=== PATIENT | female | born 1950 | race Caucasian/White ===

== ENCOUNTER → 2023-08-12 10:43 | Outpatient (REF) | payer MEDICARE, OTHER, SELFPAY | LOC: WDC 10:43 | PROVIDERS: ATTENDING PHYSICIAN Obstetrics & Gynecology Gynecology; FAMILY PHYSICIAN Family Medicine | DX: Z12.31 Encounter for screening mammogram for malignant neoplasm of breast (principal) | CPT/HCPCS: 77063; 77067 ==

== ENCOUNTER 2023-11-28 23:10 | Inpatient (IN) | payer MEDICARE, OTHER, SELFPAY ==
[2023-11-28] VITALS (8 sets, daily range): BP systolic 77–146; BP diastolic 50–75
[2023-11-28 18:47] LABS: % Basophils 0.4 % (0-2); % Eosinophils 1.3 % (0-6); % Immature Granulocytes 0.3 % (0-0.5); % Lymphocytes 12.9 % (20.5-51.1); % Monocytes 6.8 % (1.7-9.3); % Neutrophils 78.3 % (42.2-75.2); Absolute Eosinophils 0.1 10^3/uL (0-0.7); Absolute Lymphocytes 1.3 10^3/uL (1.2-3.4); Absolute Monocytes 0.7 10^3/uL (0.1-0.6); Absolute Neutrophils 7.6 10^3/uL (1.4-6.5); Hematocrit 39.5 % (37.0-47.0); Hemoglobin 14.3 g/dL (12.0-16.0); Mean Corp Hgb Conc. 36.2 g/dL (33.0-37.0); Mean Corpuscular Hgb 32.7 pg (27.0-31.0); Mean Corpuscular Volume 90.4 fL (81.0-99.0); Mean Platelet Volume 9.9 fL (7.4-10.4); Nucleated Red Blood Cells % 0 %; Platelet Count 144 10^3/uL (130-400); Red Blood Cell Count 4.37 10^6/uL (4.20-5.40); Red Cell Dist. Width 13.2 % (11.5-14.5); White Blood Cell Count 9.7 10^3/uL (4.8-10.8)
[2023-11-28 19:11] LABS: ALT (SGPT) 21 U/L (0-35); AST (SGOT) 42 U/L (14-36); Albumin 4.1 g/dl (3.5-5.0); Alkaline Phosphatase 105 U/L (38-126); Blood Urea Nitrogen 28 mg/dl (7-17); Calcium 10.4 mg/dl (8.4-10.2); Carbon Dioxide 21 mmol/L (22-30); Chloride 98 mmol/L (98-107); Glucose 109 mg/dl (70-99); Potassium 4.6 mmol/L (3.5-5.1); Sodium 128 mmol/L (135-145); Total Bilirubin 1.4 mg/dl (0.2-1.3); Total Protein 6.7 g/dl (6.3-8.2); eGFR > 60.00
--- NOTE | 2023-11-28 20:19 | ED.GENMED ---
History of Present Illness
General
Chief Complaint: Abdominal Symptoms
Source: patient and spouse
Exam Limitations: none
Time Seen by Provider: 11/28/23 19:53
Nursing documentation reviewed up to this point in time: agreed with
History of Present Illness
History of Present Illness:
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
cardiac cath right groin access a week ago for mitral clip that apparently was unsuccessful had some swelling in the groin postoperatively with minimal pain earlier today developed worsening pain with nausea swelling into the labia worse with
movement she spoke with her physicians who referred her to the closest ER to be seen
Past History
Past History
ED Past Medical History: COPD, Valvular disease and Other (Webb valvular disease)
ED Past Surgical History: Cardiac and Cholecystectomy
Social History
Tobacco: Non-smoker
Alcohol: None
Drug: None
Personal:
Living: with family
Employment: Retired
Review of Systems
Review of Systems
All Other Systems: Not applicable
Constitutional: Denies fever or fatigue
EENT: Reports no symptoms
Respiratory: Reports no symptoms
Cardiac: Reports no symptoms
ABD/GI: Reports abdominal pain, nausea and vomiting
Musculoskeletal: Reports back pain
Skin: Reports other (swelling groin)
Neurological: Reports no symptoms
Endocrine: Reports no symptoms
Phy Exam
Physical Exam
Physical Exam:
Physical Exam
General: 73 female looks uncomfortable
Neck: No jaundice
Heart: s1/s2 regular rate and rhythm, no murmur. equal radial pulses.
Lungs: no acute respiratory distress. clear bilaterally
Abdomen: Tender mass in the right groin diffuse abdominal tenderness
Neuro: alert and oriented. no focal neurological deficits
Skin: no rash
Psychiatric: well kept. interactive and cooperative
Extremities: no edema.
Course
Orders/Labs/Results
Orders:
Orders
11/28/23 18:40
Complete Blood Count/With Diff Urgent
Comprehensive Metabolic Panel Urgent
11/28/23 20:07
CT Abd/pelvis Angio W/wo Iv Urgent
Comment:
Reason For Exam: swelling pain vomiting after groain access
11/28/23 20:08
HYDROmorphone [Dilaudid] 1 mg IV NOW STA
Ondansetron Injectable [Zofran] 4 mg IV NOW STA
11/28/23 21:00
Type+Screen Urgent
11/28/23 22:07
0.9% Sodium Chloride 1000 ml [Nss] 1,000 ml IV BOLUS
11/28/23 22:22
Iohexol [Omnipaque] See Protocol PO NOW STA
11/28/23 22:55
Admit/Transfer Patient As Directed
Co-Sign Provider:
Level of Care: Inpatient admission
Assign to:: Telemetry
Physician / Group: sonny
Diagnosis: SBO
Reason for Telemetry: Other
Other Reason for Telemetry: hypotension
Date to Stop Telemetry: 11/30/23
Time to Stop Telemetry: 11:00
Reason for Hospitalization: SBO
Expected length of stay greater than two midnights?: Yes
ELOS- Estimated Length of Stay in days: 3
I certify the patient meets the requirements for IP care: Yes
PRN Pain Medication Management As Directed
May give lesser potent ordered pain med per pt: Yes
preference::
Protocol:: Medication orders for pain may be administered in a
manner that supports deferring to patient preference
when the pt is:
- Requesting an ordered lesser potent pain medication.
Least to most potent pain medications are defined
as: acetaminophen < NSAID < tramadol < opioids
(morphine, oxycodone, hydromorphone).
- Requesting a lesser dose of the same medication IF
ORDERED.
- Requesting a less intrusive route of administration
if both routes are prescribed by the provider (PO <
IV).
11/28/23 22:56
Code Status As Directed
Resuscitation Status: Full Code
11/28/23 22:58
EKG [Electrocardiogram (*1)] Stat
Reason for Study: QTc Monitoring
11/29/23 00:30
CT Abd/pel (oral only)-DH Only Urgent
Reason For Exam: sbo-requested by surgery
11/30/23 11:00
DC Protocol for Telemetry ONCE
Abnormal Lab Results
11/28/23
18:40
MCH 32.7 H pg
(27.0-31.0)
Absolute Neuts (auto) 7.6 H 10^3/uL
(1.4-6.5)
Absolute Monos (auto) 0.7 H 10^3/uL
(0.1-0.6)
Neutrophils % 78.3 H %
(42.2-75.2)
Lymphocytes % 12.9 L %
(20.5-51.1)
Sodium 128 L mmol/L
(135-145)
Carbon Dioxide 21 L mmol/L
(22-30)
BUN 28 H mg/dl
(7-17)
Glucose 109 H mg/dl
(70-99)
Calcium 10.4 H mg/dl
(8.4-10.2)
Total Bilirubin 1.4 H mg/dl
(0.2-1.3)
AST 42 H U/L
(14-36)
11/28/23 18:40
11/28/23 18:40
Vital Signs
Initial and Last Documented VS:
Initial Vital Signs
Temp Pulse Resp BP Pulse Ox
99.1 F 69 19 118/75 99
11/28/23 18:02 11/28/23 18:02 11/28/23 18:02 11/28/23 18:02 11/28/23 18:02
Last Documented Vital Signs
Temp Pulse Resp BP Pulse Ox
98.8 F 72 17 77/50 98
11/28/23 18:26 11/28/23 22:45 11/28/23 22:45 11/28/23 22:00 11/28/23 22:45
MDM/Problems Addressed
Differential Diagnosis Includes:
Aneurysm pseudoaneurysm AAA
MDM/Problems Addressed:
Swollen groin
Chronic conditions affecting care:
Liver disease
Acute Exacerbation and/or Progression of Chronic Illness:
Liver disease
*Radiology
Radiology exam reviewed: radiology read reviewed
*Pulse Oximetry
Patient hypoxic: no
*EKG
Interpreted by ED Provider?: Yes
Interpretation: abnormal
Comparison EKG: no comparison EKG present
Heart Rate: 78
Rate: normal
Rhythm: sinus
QRS Pattern: normal QRS
Ischemia: no ischemia
*Signal Operator Interpretation
Rate: normal and tachycardiac
Interpretation: normal
Heart Rate: 78
Rhythm: sinus
*Critical Care Note
Total Time (30-74mins, 75-104mins- exclusive of procedures): 30
Update Note
Update Note:
Update, CT reviewed, reviewed with patient no longer has a bulge in her groin, looks like this was all hernia has a postop vascular issue reviewed general surgery with hospitalist reviewed with patient will get a CT with oral contrast tonight if she
still has signs of obstruction will go to the OR if not will be managed more conservatively patient and spouse are in agreement with plan
ED Attending Note
-
Portions of this chart may have been created with voice recognition software.� Occasional wrong word or��sound alike� substitutions may have occurred due to the inherent limitations of voice recognition software.
Discharge Plan
Departure
Patient Disposition: Admit
Date of Disposition: 11/28/23
Time of Disposition: 23:01
Admit to: Med/Surg
Presentation/result/management discussed w/ accepting MD/DO: Hospitalist
Patient with high blood pressure during this ER visit?: No
Condition: Good
Discharge Problem:
SBO (small bowel obstruction)
Prescriptions:
No Action
levothyroxine 25 mcg tablet
25 mcg PO DAILY
lorazepam 0.5 mg tablet
1 mg PO HS PRN (Reason: sleep)
Patient Comments:
05/14/2023: last filled 04/19/23, 8 tabs for 4 days from [facility][id number]
albuterol sulfate [Ventolin HFA] 90 mcg/actuation HFA aerosol inhaler
2 puff INHALATION R Q4 PRN (Reason: sob/wheezing)
furosemide 20 mg Tablet
20 mg PO DAILY Qty: 30 0RF
spironolactone 50 mg Tablet
50 mg PO DAILY Qty: 30 0RF
Referrals:
UNKNOWN - PT DOES,NOT KNOW [Family Provider] -
Interventions
Interventions:
*Risk Screen - Suicide Last Done: 11/28/23 18:02
*General Assessment Last Done: 11/28/23 18:43
*Neglect/Abuse Screening Last Done: 11/28/23 18:02
*ED COVID-19 Vaccine History Last Done: 11/28/23 18:02
MU-Lzappw-Kkkzdcibhw Assessment Last Done: 11/28/23 18:28
Discharge Date and Time
Print Language: MONGOLIAN
[2023-11-28] MEDS: DILAUDID 1 MG IV (20:53)
[2023-11-28] MEDS: ZOFRAN 4 MG IV (20:53)
[2023-11-28] MEDS: NSS 1000 IV (22:19)
--- NOTE | 2023-11-28 22:22 | HPS.HSE ---
Family Physician
-
Family Physician: NOT KNOW UNKNOWN - PT DOES
Chief Complaint
-
abdominal pain associated with n/v
History of Present Illness
73-year-old female with past medical history for COPD, Menard, aortic stenosis presented abdominal pain radiating to back since this afternoon. Stated multiple episodes of violent vomiting . She had small bowel movements today.stated headache
.patient denied fever or chills, chest pain, short of breath .denied dizzy or syncopal episode .patient denied dysuria hematuria.patient underwent cardiac cath via right groin vehicle for MitraClip up,apparently was unsuccessful had some swelling in
the groin.
CAT scan with findings are compatible with small bowel obstruction on the basis of right inguinal hernia. Patient received Dilaudid, normal saline and Zofran in ER. Admitting for further management
Medical History
Past Medical History
Past Medical History: Reports Other
Additional Past Medical History:
Hyperlipidemia
Hypothyroidism
Depression
MENARD
Past Surgical History: Reports Other
Additional Past Surgical History:
Cataract extraction
Cholecystectomy
Social History
Tobacco: Former Smoker
Alcohol: Former
Drug: None
Personal:
Living: With Family
Family History
Family History: Not pertinent
Allergies / Home Medications
Allergies reflects when Allergies were last updated in [employer].
Home Medications with original date entered in [employer]
Allergy/Medication List:
Allergies
Allergy/AdvReac Type Severity Reaction Status Date / Time
amoxicillin [From Augmentin] Allergy Unknown Vomiting Verified 05/14/23 19:37
clavulanic acid Allergy Unknown Vomiting Verified 05/14/23 19:37
[From Augmentin]
Home Medications
albuterol sulfate 90 mcg/actuation aerosol inhaler (Ventolin HFA) 2 puff inhalation R Q4 PRN sob/wheezing 05/14/23
levothyroxine 25 mcg tablet 25 mcg PO DAILY Thyroid 05/14/23
lorazepam 0.5 mg tablet 1 mg PO HS PRN sleep 05/14/23
furosemide 20 mg tablet 20 mg PO DAILY #30 tabs 05/18/23
spironolactone 50 mg tablet 50 mg PO DAILY #30 tabs 05/18/23
Review of Systems
-
Constitutional: Reports No Symptoms
EENT: Reports No Symptoms
Respiratory: Reports No Symptoms
Cardiac: Reports No Symptoms
Abdomen/GI: Reports Abdominal Pain, Nausea and Vomiting
: Reports No Symptoms
Musculoskeletal: Reports No Symptoms
Skin: Reports No Symptoms
Neurological: Reports No Symptoms
Endocrine: Reports No Symptoms
Hematologic/Lymphatic: Reports No Symptoms
Psych: Reports No Symptoms
Physical Exam
Vital Signs
Vital Signs
Temp Pulse Resp BP Pulse Ox
98.8 F 76 14 124/61 96
11/28/23 18:26 11/28/23 21:00 11/28/23 21:00 11/28/23 21:00 11/28/23 21:00
Physical Exam
General: Well Developed, Well Nourished and No Apparent Distress
HEENT: NormoCephalic, Moist mucous membranes and Atraumatic
Respiratory: Clear
Cardiac: S1/S2 and Regular Rhythm; No Murmur or Rub
GI: Soft, Non Tender, Non Distended and Normal Bowel Sounds; No Organomegaly
Rectal: Deferred by Provider
Musculoskeletal: No Clubbing, No Cyanosis and No Edema
Skin: No Rash
Neuro: AO x 3 and Nonfocal/grossly intact
Psych: Calm
Laboratory Results
-
11/28/23 18:40
11/28/23 18:40
Laboratory Results
Total Bilirubin 1.4 mg/dl (0.2-1.3) H 11/28/23 18:40
AST 42 U/L (14-36) H 11/28/23 18:40
ALT 21 U/L (0-35) 11/28/23 18:40
Alkaline Phosphatase 105 U/L (38-126) 11/28/23 18:40
Data Reviewed
-
CT Scan: Report Reviewed by me
Lab Data: Labs Reviewed by me
Impression/Plan
-
# Small bowel obstruction/inguinal hernia
-N.p.o.
-Surgery consulted
-CT with right inguinal hernia, which appears to be a direct inguinal hernia. This contains a small rounded fluid-filled loop of small bowel. There is evidence for associated small bowel obstruction.
-Patient is due for CT with oral contrast
-Dilaudid as needed for pain, Zofran as needed for nausea vomiting
# History of Menard, ascites cirrhosis
-Following up with [facility] for liver transplant
-Underwent paracentesis last admission
-Will hold Lasix, spironolactone
-Hold lactulose
# hyponatremia
-Sodium 128
-Continue to monitor
#COPD
-Continue inhalers
#Hypothyroidism
-Continue levothyroxine
Anxiety/depression
-on Ativan as outpatient
# Essential hypertension
-Hold Coreg due to hypotension
Full code
DVT prophylaxis�SCDs
--- NOTE | 2023-11-28 22:25 | W.PN.UPDATE ---
Update Note
Progress Note Update
This is an addendum to H&P written by TRUCK SALES REPRESENTATIVE Coco Holcomb
I saw and examined the patient.
The TRUCK SALES REPRESENTATIVE's note was reviewed and I agree with the note.
Comment:
Ms. Tiffany Gonzales is a 73 yo woman with hx hypothyroidism, anxiety/depression, HLD, liver cirrhosis undergoing workup for transplant at [facility], s/p attempt at karma clip one week ago (unsuccessful, s/p right groin access) presents to the ER with post
op groin swelling, increasing pain and vomiting.
Triage VS: T 99.1, P 69, RR 19, BP 118/75, SpO2 99%
LABS: Na 128, K+ 4.6, BUN 28, Cr 0.9, Glucose 109, T. Bili 1.4, AST 42, ALT 21, Alk Phos 105, WBC 9.7, Hg 14.3, PLT 144
On exam patient is awake, conversant, CV: S1, S2, + murmur, lungs clear, abdomen tender lower quadrants, Right groin with bruising, reducible hernia, no LE swelling
CT A/P
IMPRESSION: There is no evidence for pseudoaneurysm. There is no evidence for groin or retroperitoneal hematoma.
There is a right inguinal hernia, which appears to be a direct inguinal hernia. This contains a small rounded fluid-filled loop of small bowel. There is evidence for associated small bowel obstruction.
No evidence of free intraperitoneal air.
Cirrhotic contour of the liver. No evidence for ascites.
Honeycombing within the posterior and inferior aspect of both lower lungs, right greater than left.
Coronary artery calcifications are present. Please correlate with symptoms of and risk factors for coronary artery disease, with further workup as clinically appropriate.
Bony degenerative changes as described. Deformity of the left femoral neck compatible with healed impacted fracture.
Small Bowel Obstruction in setting or direct inguinal hernia
-repeat CT with oral contrast ordered
-Dr. Pineda aware of case; if bowel remains in the hernia will need to go to OR this evening
-NPO
-IVF
-pain control
Liver Cirrhosis
-undergoing transplant evaluation at [facility]
-hold RANGE FEEDER Lasix/spironolactone
-hold RANGE FEEDER lactulose
Hypothyroidism
DVT PPx SCD
[2023-11-28] MEDS: OMNIPAQUE 50 ML PO (22:40)
[2023-11-29] VITALS (8 sets, daily range): BP systolic 96–121; BP diastolic 54–63; BMI 21.2
[2023-11-29] MEDS: FLUSH (NSS) 1 FLUSH IV (00:05)
[2023-11-29] MEDS: NSS 1000 IV (03:00)
--- NOTE | 2023-11-29 03:00 | PTCARENOTE ---
. Tiffany Gonzales is a 73 yo woman with hx hypothyroidism, anxiety/depression, HLD, liver cirrhosis undergoing workup for transplant at [facility], s/p attempt at karma clip one week ago (unsuccessful, s/p right groin access) presents to the ER with post
op groin swelling, increasing pain and vomiting.
Pt NPO for possible surgery later today for Small Bowel Obstruction. Pt A0x3, complain of no pain, bed in low position, call light in reach, SCD on.
[2023-11-29] MEDS: SYNTHROID 25 MCG PO (05:01)
[2023-11-29 06:49] LABS: Hematocrit 33.7 % (37.0-47.0); Hemoglobin 12.3 g/dL (12.0-16.0); Mean Corp Hgb Conc. 36.5 g/dL (33.0-37.0); Mean Corpuscular Hgb 32.4 pg (27.0-31.0); Mean Corpuscular Volume 88.7 fL (81.0-99.0); Mean Platelet Volume 10.1 fL (7.4-10.4); Platelet Count 124 10^3/uL (130-400); Red Cell Dist. Width 13.2 % (11.5-14.5); White Blood Cell Count 11.1 10^3/uL (4.8-10.8)
[2023-11-29 07:17] LABS: Blood Urea Nitrogen 24 mg/dl (7-17); Carbon Dioxide 20 mmol/L (22-30); Chloride 100 mmol/L (98-107); Estimated Creatinine Clearance 45 ml/min; Glucose 73 mg/dl (70-99); Potassium 4.1 mmol/L (3.5-5.1); Sodium 126 mmol/L (135-145); eGFR > 60.00
--- NOTE | 2023-11-29 09:10 | CON.GS ---
Addendum entered and electronically signed by Santo Tobias MD 11/29/23 13:13:
Patient seen and examined with surgical STRUCTURAL STEEL DETAILER. Agree with documented consultation note.
HPI: 73-year-old female with medical history mainly notable for MENARD for which she is trying to be listed on the liver transplant list, COPD, mitral valve regurgitation moderate to severe with recent attempt at mitral clipping at [facility]
unsuccessful. She developed the acute onset of right groin pain yesterday which previously had never been present. She was unaware of the presence of her hernia. She felt swelling in the area. It persisted prompting emergency department
evaluation overnight. After getting morphine she was able to relax and her symptoms went away.
Patient generally feels well. Her presenting symptoms remain resolved.
Past medical history as listed above.
Past surgical history only notable for cholecystectomy.
AFVSS
NAD, AAOx3, family at bedside
ABD: Soft, nondistended, nontender to palpation.
Right femoral hernia remains palpable but nontender. Likely just residual edema/fluid within the hernia space.
CT imaging reviewed both initial scan and follow-up scan. Initial scan concerning for possible Masters's type configuration with adjacent small bowel and resultant SBO. Follow-up CT scan imaging with oral contrast confirms reduction of right
femoral hernia without bowel involvement but just residual fluid in the hernia sac.
Assessment/plan: 73-year-old female with a temporarily incarcerated and obstructing right femoral hernia that has resolved spontaneously after dose of morphine.
While we discussed indications for operative correction we also reviewed her medical history notable for MENARD and severe mitral regurgitation. She follows with cardiology and liver service at [facility]. We discussed discharge with outpatient
follow-up with myself and her specialist to confirm subsequent anticipated plan for interval repair of her hernia if medically cleared.
Okay for regular diet and discharge from surgical standpoint
Original Note:
Consultation
-
Date/Time Consultation Requested: 11/29/23 0116
Requesting Provider: Zhang
Performing Provider: Jaiden Tobias
Medical History
-
Chief Complaint: Abdominal pain
History of Present Illness:
Ms. Gonzales is a 73 yo female with a h/o MENARD, chronic hyponatremia, COPD and recent mitral valve procedure at [facility] one week ago with access via the right femoral vein. She has ecchymosis present without erythema or palpable hematoma present. She was
doing well after her procedure until around noon yesterday when she developed the most severe abdominal pain she has ever had. She notes it was worse than natural child . She developed intractable vomiting with nausea and felt a palpable lump
in her right groin and presented to the ED for evaluation. Initial CT with right groin hernia present with loop of small bowel within it causing a small bowel obstruction. CT was repeated with contrast with spontaneous reduction of the hernia noted.
She notes complete resolution of her symptoms. She is passing flatus without any further nausea or vomiting.
Past Medical History
Past Medical History: COPD, Hypercholesterolemia, Hypothyroidism and Other (MENARD, Chronic hyponatremia, anxiety/depression)
Past Surgical History: Cholecystectomy
Social History
Tobacco: Former Smoker
Alcohol: None
Family History
Family History: Reviewed & Not Pertinent
Allergies / Home Medications
Allergy/AdvReac Type Severity Reaction Status Date / Time
amoxicillin [From Augmentin] Allergy Unknown Vomiting Verified 05/14/23 19:37
clavulanic acid Allergy Unknown Vomiting Verified 05/14/23 19:37
[From Augmentin]
�Medication �Instructions �Recorded �Confirmed �Type
albuterol sulfate 90 mcg/actuation 2 puff inhalation R Q6HPRN PRN 05/14/23 11/28/23 History
aerosol inhaler (Ventolin HFA) sob/wheezing
levothyroxine 25 mcg tablet 25 mcg PO DAILY Thyroid 05/14/23 11/28/23 History
lorazepam 0.5 mg tablet 0.5 mg PO HS PRN sleep 05/14/23 11/28/23 History
spironolactone 50 mg tablet 50 mg PO DAILY #30 tabs 05/18/23 11/28/23 Rx
acetaminophen 325 mg tablet 325 mg PO Q6HPRN PRN mild pain 11/28/23 11/28/23 History
aspirin 81 mg capsule 81 mg PO DAILY 11/28/23 11/28/23 History
carvedilol 6.25 mg tablet (Coreg) 6.25 mg PO BID 11/28/23 11/28/23 History
ferrous sulfate 325 mg (65 mg 325 mg PO Q48H 11/28/23 11/28/23 History
iron) tablet
furosemide 40 mg tablet 40 mg PO DAILY 11/28/23 11/28/23 History
lactulose 10 gram/15 mL oral 7.5 ml PO DAILY 11/28/23 11/28/23 History
solution
oxycodone 5 mg tablet 5 mg PO Q6HPRN PRN moderate to 11/28/23 11/28/23 History
severe pain
polyethylene glycol 3350 17 gram 17 g PO BIDPRN PRN constipation 11/28/23 11/28/23 History
oral powder packet (Miralax)
Review of Systems
-
History Source: Patient and Family
All other systems: Negative unless noted
A 10 point review of systems was completed, and was negative except as per HPI.
Physical Exam
Vital Signs
Temp Pulse Resp BP Pulse Ox
98.5 F 79 14 96/58 95
11/29/23 07:35 11/29/23 07:35 11/29/23 07:35 11/29/23 07:35 11/29/23 07:35
11/28/23 11/29/23 11/30/23
06:59 06:59 06:59
Actual Weight 52.481 kg
Body Mass Index (BMI) 21.2
Lab Results
11/29/23 06:18
11/29/23 06:18
WBC 11.1 10^3/uL (4.8-10.8) H 11/29/23 06:18
Hgb 12.3 g/dL (12.0-16.0) 11/29/23 06:18
Hct 33.7 % (37.0-47.0) L 11/29/23 06:18
Plt Count 124 10^3/uL (130-400) L 11/29/23 06:18
Abs Immat Gran (auto) 0.0 10^3/uL (0-0.05) 11/28/23 18:40
Neutrophils % 78.3 % (42.2-75.2) H 11/28/23 18:40
Physical Exam
General: Well Developed and No Apparent Distress
HEENT: Normocephalic and Moist Mucous Membranes
Respiratory: Non Labored Respirations
GI: Soft, Non Tender, Non Distended and Other (No palpable hernia)
Skin: Warm and Other (bruising to the right groin)
Neuro: Awake, Alert and AO x 3
Psych: Calm
Data Reviewed
-
CT Scan: Image Personally Visualized and interpreted, Report Reviewed by me, Discussed with Physician and Discussed with Patient
Labs: Labs Reviewed by me, Discussed with Physician, Discussed with Nurse and Discussed with Patient
Assessment / Plan
-
73 yo female with h/o MENARD, chronic hyponatremia, COPD and recent mitral valve procedure at [facility] one week ago with right groin accessed for procedure presenting with abdominal pain, nausea and vomiting with palpable lump to right groin.
Initial CT with findings of a right groin hernia with loop of small bowel within it causing a small bowel obstruction. CT was repeated with contrast with spontaneous reduction of the hernia noted. There is what is likely a femoral hernia with a
small amount of fluid/edema within it. She has had resolution of symptoms and is passing flatus. AFVSS. Mild leukocytosis. Hyponatremia near baseline with mild elevation in bilirubin in keeping with h/o MENARD.
--Start clear liquids and advance to LRD if tolerating
--Clear for d/c from surgical standpoint once tolerating diet
No plans for emergent surgery at this time as hernia has been reduced with resolution of symptoms. Recommend outpatient hernia repair. She plans to follow up at [facility] with her primary government affairs researcher and hand twister prior to proceeding with surgery.
[2023-11-29] MEDS: COREG PO (09:20)
[2023-11-29] MEDS: ASPIR LOW (ENTERIC COATED) 81 MG PO (10:38)
--- NOTE | 2023-11-29 13:56 | W.PN.HOSP.TC ---
Today's Communication/Plan
-
resume diuretics - monitor BMP
Adv to LRD
tentative dc in 24 hours if Na stays stable an can tolerate LRD
Assessment / Plan
Assessment / Plan
General: Well Developed and No Apparent Distress
HEENT: Normocephalic and Moist Mucous Membranes
Respiratory: Non Labored Respirations
GI: Soft, Non Tender, Non Distended and Other (No palpable hernia)
Skin: Warm and Other (bruising to the right groin)
Neuro: Awake, Alert and AO x 3
Psych: Calm
# Small bowel obstruction/inguinal hernia
-resolved, reduced on her own
-Adv to LRD
-Surgery consulted - can f/u outpatient
-CT with right inguinal hernia, which appears to be a direct inguinal hernia. This contains a small rounded fluid-filled loop of small bowel. There is evidence for associated small bowel obstruction.
-Dilaudid as needed for pain, Zofran as needed for nausea vomiting
# History of Webb, ascites cirrhosis
-Following up with [facility] for liver transplant
-Underwent paracentesis last admission
-Resume Lasix, spironolactone - appears euvolemic
-Hold lactulose
# hyponatremia
-Sodium 126
-Continue to monitor
-resume diuretics
-does not appear to be dry
#COPD
-Continue inhalers
#Hypothyroidism
-Continue levothyroxine
Anxiety/depression
-on Ativan as outpatient
# Essential hypertension
-Hold Coreg due to hypotension
Full code
DVT prophylaxis�SCDs
Anticipated Discharge: Within 24 hours
Subjective/Interval History
-
Date of Service: November 29, 2023
had BM, tolerating CLD
Objective Data
-
Labs:
Laboratory Results
11/29/23
06:18
WBC 11.1 H
Hgb 12.3
Hct 33.7 L
Plt Count 124 L
Sodium 126 L
Potassium 4.1
Chloride 100
Carbon Dioxide 20 L
BUN 24 H
Creatinine 0.9
Glucose 73
Calcium 9.0
Vital Signs:
Vital Signs
Temp Pulse Resp BP Pulse Ox
98.6 F 73 14 108/57 95
11/29/23 11:55 11/29/23 11:55 11/29/23 11:55 11/29/23 11:55 11/29/23 11:55
I&O
11/28/23 11/29/23 11/30/23
06:59 06:59 06:59
Intake Total 240 / 240
Balance 240 / 240
Review of Systems
-
History Source: Patient
All other systems: Not reviewed unless documented
Data Reviewed
-
CT Scan: Image personally visualized and interpreted and Report Reviewed by me
Labs: Labs Reviewed by me
[2023-11-29] MEDS: LASIX 40 MG PO (15:17)
[2023-11-29] MEDS: ALDACTONE 50 MG PO (15:17)
[2023-11-29] MEDS: HEPARIN 5000 UNITS SC ×2 (15:20→23:15)
[2023-11-29] MEDS: NSS IV (16:04)
--- NOTE | 2023-11-29 16:33 | CM ---
Patient seen bedside with spouse and daughter.
IA completed.
Patient lives with spouse in a 2 story home with 2 steps to enter.
Patient independent prior to admission without assitvie devices.
Patient drives.
No hx VN or snf.
PCP; Shannan
Pharmacy: [facility] [place]
IMM completed.
Plan: home no needs.
[2023-11-29] MEDS: COREG 6.25 MG PO (20:24)
[2023-11-29] MEDS: DILAUDID 0.5 MG IV (23:26)
[2023-11-29] MEDS: ZOFRAN 4 MG IV (23:32)
[2023-11-30 03:48] VITALS: BP 107/60
[2023-11-30] MEDS: SYNTHROID 25 MCG PO (05:14)
[2023-11-30 05:22] VITALS: BMI 20.9
[2023-11-30 07:45] VITALS: BP 90/53
[2023-11-30] MEDS: ASPIR LOW (ENTERIC COATED) 81 MG PO (08:23)
[2023-11-30] MEDS: LASIX PO (08:25)
[2023-11-30] MEDS: COREG PO (08:27)
[2023-11-30] MEDS: ALDACTONE PO (08:27)
[2023-11-30] MEDS: HEPARIN 5000 UNITS SC (08:29)
[2023-11-30 08:44] LABS: INR 1.25; PT 15.5 Sec (11.4-14.6)
[2023-11-30 08:45] LABS: APTT 38.8 Sec (23.4-35.0)
[2023-11-30 08:46] LABS: Blood Urea Nitrogen 20 mg/dl (7-17); Calcium 9.1 mg/dl (8.4-10.2); Carbon Dioxide 25 mmol/L (22-30); Chloride 99 mmol/L (98-107); Estimated Creatinine Clearance 37 ml/min; Glucose 82 mg/dl (70-99); Potassium 4.5 mmol/L (3.5-5.1); Sodium 129 mmol/L (135-145); eGFR 53.39
[2023-11-30 10:09] LABS: Hematocrit 34.4 % (37.0-47.0); Hemoglobin 12.2 g/dL (12.0-16.0); Mean Corp Hgb Conc. 35.5 g/dL (33.0-37.0); Mean Corpuscular Hgb 32.2 pg (27.0-31.0); Mean Corpuscular Volume 90.8 fL (81.0-99.0); Mean Platelet Volume 10.5 fL (7.4-10.4); Platelet Count 126 10^3/uL (130-400); Red Blood Cell Count 3.79 10^6/uL (4.20-5.40); Red Cell Dist. Width 13.5 % (11.5-14.5); White Blood Cell Count 7.5 10^3/uL (4.8-10.8)
[2023-11-30] MEDS: ALDACTONE 50 MG PO (11:08)
[2023-11-30 11:15] VITALS: BP 103/59
--- NOTE | 2023-11-30 11:26 | W.PN.GS2 ---
Addendum entered and electronically signed by Santo Tobias MD 11/30/23 14:55:
Patient seen in follow-up with nurse practitioner this a.m. Agree with documented progress note. This is a delayed entry.
Patient states that she continues to feel well.
Denies any abdominal pain. No nausea or vomiting. Passing flatus and had bowel movements.
Tolerating dietary advancement.
AFVSS
ABD: Soft, nondistended, nontender. Right femoral hernia palpable but even less prominent than yesterday.
A/P: 73-year-old female initially presenting with temporarily incarcerated and obstructing right femoral hernia that spontaneously reduced.
With patient's medical comorbidities managed at [facility] we have elected for initial nonoperative management with consideration of interval resection as she would like to undergo preoperative clearance with her specialists
No signs of bowel compromise or threat from temporary event of femoral hernia incarceration
Counseled regarding risk for recurrence
Will follow-up with myself as outpatient
Original Note:
Today's Communication / Plan
-
LRD
Assessment / Plan
-
73-year-old female with a temporarily incarcerated and obstructing right femoral hernia that has resolved spontaneously after dose of morphine.
AFVSS
Tolerating diet with good bowel function
Plan OP follow up with cards/liver services at [facility] to discuss elective hernia repair with subsequent follow up with our service vs [facility] for elective hernia repair
Ok for discharge from surgical standpoint
Subjective Data
-
Date of Service: November 30, 2023
Patient seen and examined at bedside. Notes some chronic back pain present for which she took analgesics overnight. Denies n/v. Passing stools. No further abdominal pain.
Objective Data
-
Intake and Output
11/29/23 11/30/23 12/01/23
06:59 06:59 06:59
Intake Total 240 / 240 960 / 960
Balance 240 / 240 960 / 960
Intake:
Oral fluids 960 / 960
IV fluids (Total) 240 / 240
Other:
Number of approximated MODERATE 2 3
amounts of urine
Number of approximated LARGE 4
amounts of urine
Vital Signs
Temp Pulse Resp BP Pulse Ox
98.6 F 68 16 95/58 94
11/30/23 07:45 11/30/23 11:08 11/30/23 07:45 11/30/23 11:08 11/30/23 07:45
Lab Results
11/30/23 07:13
11/30/23 07:13
Calcium 9.1 mg/dl (8.4-10.2) 11/30/23 07:13
Total Bilirubin 1.4 mg/dl (0.2-1.3) H 11/28/23 18:40
AST 42 U/L (14-36) H 11/28/23 18:40
ALT 21 U/L (0-35) 11/28/23 18:40
Alkaline Phosphatase 105 U/L (38-126) 11/28/23 18:40
Total Protein 6.7 g/dl (6.3-8.2) 11/28/23 18:40
Albumin 4.1 g/dl (3.5-5.0) 11/28/23 18:40
Physical Exam
-
NAD
ABD soft, nt, nd. Rigth groin with resolving ecchymosis and femoral hernia palpable but not tender, soft.
--- NOTE | 2023-11-30 12:16 | W.PN.HOSP.TC ---
Addendum entered and electronically signed by Rob Day MD 11/30/23 15:09:
[id number]
Addendum entered and electronically signed by Rob Day MD 11/30/23 12:45:
Correct: Reduce Coreg to 3.125mg BID with holdign directions; continue same dose Aldactone/Lasix
Addendum entered and electronically signed by Rob Day MD 11/30/23 12:31:
Stop Coreg
Reduce Spironolactone
F/u hepatology/PCP outpatient
Original Note:
Today's Communication/Plan
-
reduce Coreg to 3.125mg BID
resume diuretics
F/u Hepatology, Surgery, Cards, PCP outpatient
BMP in 3-5 days
Assessment / Plan
Assessment / Plan
General: Well Developed and No Apparent Distress
HEENT: Normocephalic and Moist Mucous Membranes
Respiratory: Non Labored Respirations
GI: Soft, Non Tender, Non Distended and Other (No palpable hernia)
Skin: Warm and Other (bruising to the right groin)
Neuro: Awake, Alert and AO x 3
Psych: Calm
# Small bowel obstruction/inguinal hernia
-resolved, reduced on her own
-Adv to LRD
-Surgery consulted - can f/u outpatient after clearance from Hepatology/Cards outpatient
-CT with right inguinal hernia, which appears to be a direct inguinal hernia. This contains a small rounded fluid-filled loop of small bowel. There is evidence for associated small bowel obstruction.
-Dilaudid as needed for pain, Zofran as needed for nausea vomiting
# History of Webb, ascites cirrhosis
-Following up with [facility] for liver transplant
-Underwent paracentesis last admission
-Resume Lasix, spironolactone - appears euvolemic
-lactulose
-Reduce Coreg to 3.125mg BID
# hyponatremia
-Continue to monitor
-resume diuretics
-does not appear to be dry
-F/u BMP in 3-5 days with PCP
#COPD
-Continue inhalers
#Hypothyroidism
-Continue levothyroxine
Anxiety/depression
-on Ativan as outpatient
# Essential hypertension
-Reduce Coreg to 3.125
-F/u outpatient PCP
Full code
DVT prophylaxis�SCDs
More than 30 minutes spent in discharge including
Final examination of the patient
Summarizing hospital stay
Instructions for continuing care to all relevant caregivers
Preparation of discharge records, prescriptions, and referral forms
Total time spent (35 in minutes):
Anticipated Discharge: Today
Subjective/Interval History
-
Date of Service: November 30, 2023
tolerating LRD
Objective Data
-
Labs:
Laboratory Results
11/30/23 11/30/23
07:13 08:09
WBC 7.5
Hgb 12.2
Hct 34.4 L
Plt Count 126 L
PT 15.5 H
INR 1.25
APTT 38.8 H
Sodium 129 L
Potassium 4.5
Chloride 99
Carbon Dioxide 25
BUN 20 H
Creatinine 1.1 H
Glucose 82
Calcium 9.1
Vital Signs:
Vital Signs
Temp Pulse Resp BP Pulse Ox
98.7 F 60 18 103/59 97
11/30/23 11:15 11/30/23 11:15 11/30/23 11:15 11/30/23 11:15 11/30/23 11:15
I&O
11/29/23 11/30/23 12/01/23
06:59 06:59 06:59
Intake Total 240 / 240 960 / 960
Balance 240 / 240 960 / 960
Review of Systems
-
History Source: Patient
All other systems: Not reviewed unless documented
Data Reviewed
-
CT Scan: Image personally visualized and interpreted and Report Reviewed by me
Labs: Labs Reviewed by me
--- NOTE | 2023-11-30 12:40 | W.DS.TRANS ---
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
-
Discharge Instructions:
Discharge Diagnosis/Procedures
# Small bowel obstruction/inguinal hernia
# hyponatremia
Diet Low Fat,Low Cholesterol,2 Gram Sodium,Restrict
fluids to 64 oz,Other diet
Additional Diets Low Residue Diet for 1-2 weeks
Activity As tolerated
Blood Work BMP in 3-5 days with pcp
Instructions:
Stand-Alone Forms:
Changes to Home Medications: Yes
Discharge Medications:
DC Medications w/original date entered in [facility]
albuterol sulfate 90 mcg/actuation aerosol inhaler (Ventolin HFA) 2 puff inhalation R Q6HPRN PRN sob/wheezing 05/14/23
levothyroxine 25 mcg tablet 25 mcg PO DAILY Thyroid 05/14/23
lorazepam 0.5 mg tablet 0.5 mg PO HS PRN sleep 05/14/23
acetaminophen 325 mg tablet 325 mg PO Q6HPRN PRN mild pain 11/28/23
aspirin 81 mg capsule 81 mg PO DAILY 11/28/23
ferrous sulfate 325 mg (65 mg iron) tablet 325 mg PO Q48H 11/28/23
lactulose 10 gram/15 mL oral solution 7.5 ml PO DAILY 11/28/23
oxycodone 5 mg tablet 5 mg PO Q6HPRN PRN moderate to severe pain 11/28/23
polyethylene glycol 3350 17 gram oral powder packet (Miralax) 17 g PO BIDPRN PRN constipation 11/28/23
carvedilol 3.125 mg tablet (Coreg) 3.125 mg PO BID 30 days #60 tabs 11/30/23
furosemide 40 mg tablet 40 mg PO DAILY 30 days #30 tabs 11/30/23
spironolactone 50 mg tablet 50 mg PO DAILY 30 days #30 tabs 11/30/23
Home Medication Changes
carvedilol 3.125 mg tablet (Coreg) 3.125 mg PO BID 30 days #60 tabs 11/30/23
Pending Results: No
[2023-11-30 12:50] VITALS: BP 89/48
--- NOTE | 2023-11-30 12:59 | PTCARENOTE ---
Patient hypotensive this morning with BP 90/53, HR 63. Dr Rivas notified. Ordered to hold BP meds for now and recheck BP in an hour. BP recheck an hour later and was 95/58, HR 68. Dr. Rivas stated okay to give spironolactone. Sprinolactone given. BP
at 1220 89/48, HR 67. Dr. Rivas made aware and adjusted BP meds. Discharge order written. Patient discharge to home after reviewing all discharge instructions.
--- NOTE | 2023-11-30 14:30 | CM ---
Reviewed the chart notes. Patient discharged to home with no needs. Family provided transportation.
== END 2023-11-30 13:32 | disposition home or self-care (01) | DRG 394 ==
LOC: 2 SOUTH 23:10
PROVIDERS: Registered Nurse; Student in an Organized Health Care Education/Training Program; ADMITTING PHYSICIAN Student in an Organized Health Care Education/Training Program; ATTENDING PHYSICIAN Internal Medicine; EMERGENCY PHYSICIAN Emergency Medicine; OTHER PHYSICIAN Surgery
DX: K40.30 Unilateral inguinal hernia, with obstruction, without gangrene, not specified as recurrent (principal); E87.1 Hypo-osmolality and hyponatremia; K75.81 Nonalcoholic steatohepatitis (NASH); K74.60 Unspecified cirrhosis of liver; J44.9 Chronic obstructive pulmonary disease, unspecified; E03.9 Hypothyroidism, unspecified; F32.A Depression, unspecified; I10 Essential (primary) hypertension; I34.0 Nonrheumatic mitral (valve) insufficiency; F41.9 Anxiety disorder, unspecified; Z79.890 Hormone replacement therapy; Z79.899 Other long term (current) drug therapy; Z87.891 Personal history of nicotine dependence; Z90.49 Acquired absence of other specified parts of digestive tract; Z88.0 Allergy status to penicillin; Z88.1 Allergy status to other antibiotic agents
CPT/HCPCS: 74174; 74176; 80048; 80053; 85025; 85027; 85610; 85730; 86850; 86900; 86901; 96361; 96374; 96375; 99291; Q9967

== ENCOUNTER → 2024-02-21 14:03 | Outpatient (REF) | payer MEDICARE, OTHER, SELFPAY | LOC: RAD 14:03 | PROVIDERS: ATTENDING PHYSICIAN Family Medicine | DX: M54.16 Radiculopathy, lumbar region (principal) | CPT/HCPCS: 72110 ==

== ENCOUNTER → 2024-07-07 08:19 | Outpatient (REF) | payer MEDICARE, OTHER, SELFPAY ==
[2024-07-07 11:36] LABS: % Basophils 0.7 % (0-2); % Immature Granulocytes 0.2 % (0-0.5); % Lymphocytes 20.7 % (20.5-51.1); % Monocytes 9.4 % (1.7-9.3); Absolute Basophils 0.1 10^3/uL (0-0.2); Absolute Eosinophils 0.1 10^3/uL (0-0.7); Absolute Lymphocytes 1.7 10^3/uL (1.2-3.4); Absolute Monocytes 0.8 10^3/uL (0.1-0.6); Absolute Neutrophils 5.7 10^3/uL (1.4-6.5); Hematocrit 41.8 % (37.0-47.0); Hemoglobin 14.5 g/dL (12.0-16.0); INR 1.02; Mean Corp Hgb Conc. 34.7 g/dL (33.0-37.0); Mean Corpuscular Hgb 32.7 pg (27.0-31.0); Mean Corpuscular Volume 94.4 fL (81.0-99.0); Mean Platelet Volume 10.5 fL (7.4-10.4); Nucleated Red Blood Cells % 0 %; PT 13.7 Sec (11.4-14.6); Platelet Count 206 10^3/uL (130-400); Red Blood Cell Count 4.43 10^6/uL (4.20-5.40); Red Cell Dist. Width 13.1 % (11.5-14.5); White Blood Cell Count 8.3 10^3/uL (4.8-10.8)
[2024-07-07 12:17] LABS: ALT (SGPT) 22 U/L (0-35); AST (SGOT) 35 U/L (14-36); Albumin 3.9 g/dl (3.5-5.0); Alkaline Phosphatase 114 U/L (38-126); Blood Urea Nitrogen 20 mg/dl (7-17); Calcium 10.3 mg/dl (8.4-10.2); Carbon Dioxide 25 mmol/L (22-30); Chloride 101 mmol/L (98-107); Glucose 92 mg/dl (70-99); Potassium 4.6 mmol/L (3.5-5.1); Sodium 133 mmol/L (135-145); Total Bilirubin 0.7 mg/dl (0.2-1.3); Total Protein 6.6 g/dl (6.3-8.2); eGFR > 60.00
[2024-07-07 12:30] LABS: AFP Male/Tumor Marker 8.21 ng/ml
== END ==
LOC: RAD 08:19
PROVIDERS: ATTENDING PHYSICIAN Internal Medicine Gastroenterology; FAMILY PHYSICIAN Family Medicine
DX: K74.60 Unspecified cirrhosis of liver (principal)
CPT/HCPCS: 36415; 76700; 80053; 82105; 85025; 85610

== ENCOUNTER → 2025-01-25 11:34 | Outpatient (REF) | payer MEDICARE, OTHER, SELFPAY ==
[2025-01-25 16:32] LABS: Hematocrit 38.2 % (37.0-47.0); Hemoglobin 13.2 g/dL (12.0-16.0); Mean Corp Hgb Conc. 34.6 g/dL (33.0-37.0); Mean Corpuscular Volume 90.3 fL (81.0-99.0); Nucleated Red Blood Cells % 0 %; Platelet Count 218 10^3/uL (130-400); Red Cell Dist. Width 12.1 % (11.5-14.5)
[2025-01-25 16:35] LABS: INR 0.94; PT 12.9 Sec (11.4-14.6)
[2025-01-25 16:39] LABS: ALT (SGPT) 18 U/L (0-35); AST (SGOT) 34 U/L (14-36); Albumin 4.3 g/dl (3.5-5.0); Alkaline Phosphatase 92 U/L (38-126); Blood Urea Nitrogen 25 mg/dl (7-17); Calcium 9.7 mg/dl (8.4-10.2); Carbon Dioxide 25 mmol/L (22-30); Chloride 100 mmol/L (98-107); Glucose 95 mg/dl (70-99); Potassium 4.5 mmol/L (3.5-5.1); Sodium 130 mmol/L (135-145); Total Protein 6.9 g/dl (6.3-8.2); eGFR > 60.00
[2025-01-25 19:25] LABS: AFP Male/Tumor Marker 5.65 ng/ml
== END ==
LOC: HWRAD 11:34
PROVIDERS: ATTENDING PHYSICIAN Internal Medicine Gastroenterology; FAMILY PHYSICIAN Family Medicine
DX: K74.60 Unspecified cirrhosis of liver (principal); K70.31 Alcoholic cirrhosis of liver with ascites
CPT/HCPCS: 36415; 76700; 80053; 82105; 85025; 85610